=== PATIENT | female | born 1945 | race Caucasian/White ===

== ENCOUNTER 2018-11-10 19:31 | Observation (INO) | payer OTHER ==
--- NOTE | 2018-11-10 19:58 | EDPHY ---
H & P Time Seen by Provider: 11/10/18 19:47 HPI/ROS: CHIEF COMPLAINT: Low sodium HISTORY OF PRESENT ILLNESS: Patient is had dizzy feeling and a bad headache for the last 2 days. She has a history of chronic renal insufficiency and is followed by [facility]. She had labs drawn today which showed a sodium of 123 and was sent to the emergency department. She describes dizziness by feeling "not all there" and wobbly and weak. Little bit worse with standing. Denies vertigo or spinning. Denies ear dental throat or neck symptoms. No fever or chills. She says she has had normal oral intake. REVIEW OF SYSTEMS: Eye: no change in vision ENT: No ear symptoms. Cardiac: no chest pain or syncope Pulmonary: no cough or SOB Abdomen: no vomiting, diarrhea, abdominal pain Musculoskeletal: no back pain Skin: no rash Neuro: HPI no change in behavior or mental status Constitutional: no fever : no urinary symptoms A comprehensive 10 point review of systems is otherwise negative aside from elements mentioned in the history of present illness. PAST MEDICAL HISTORY: Renal insufficiency, appendectomy and tonsillectomy, right shoulder and knee replacement Social history: Smoker, [facility] patient General Appearance: Alert and conversant, cooperative. Eyes: No scleral icterus. ENT, Mouth: Normal mucous membranes. Does not have a dry mouth. Respiratory: Normal respiratory effort, breath sounds equal, lungs are clear to auscultation. Cardiovascular: Regular rate and rhythm. Gastrointestinal: Abdomen is soft and non tender. Neurological: Alert, face symmetric, normal motor and sensory in extremities. Skin: Warm and dry, no rashes. Musculoskeletal: No peripheral edema. Psychiatric: Not agitated. Emergency Department course/MDM: Plan for noncontrast head CT for headache with risk factor for bleeding, renal insufficiency with abnormal platelets, headache for 48 hr. Patient declined analgesics. Recheck sodium, admission for hyponatremia. She appears clinically euvolemic and says she has been drinking a lot of water along with her normal oral sodium bicarbonate. Suspect more likely hypervolemic. Her creatinine is 1.8 which is similar to previous, 1.7 in July of 2018. Discussed with Shelli Colin. 2031: Results discussed including CT findings and low potassium. Oral 40 mEq. Smoking Status: Light smoker Constitutional: Initial Vital Signs Temperature (C) 36.8 C 11/10/18 19:34 Heart Rate 82 03/12/19 19:34 Respiratory Rate 16 11/10/18 19:34 Blood Pressure 136/70 H 11/10/18 19:34 O2 Sat (%) 93 11/10/18 19:34 O2 Delivery Mode Room Air Allergies/Adverse Reactions: amoxicillin [Amoxicillin] Allergy (Unknown, Verified 11/10/18 19:37) Rash Sulfa (Sulfonamide Antibiotics) Allergy (Unknown, Verified 11/10/18 19:37) Rash tetracycline [Tetracycline] Allergy (Unknown, Verified 11/10/18 19:37) Rash erythromycin base [Erythromycin Base] Allergy (Verified 11/10/18 19:37) EMYCIN Allergy (Unknown, Uncoded 11/10/18 19:37) Rash Home Medications: Medication Instructions Recorded Sodium Bicarbonate [Na Bicarb] 2,600 mg PO BID 11/10/18 Medical Decision Making - Diagnostics EKG Interpretation: 12-lead EKG interpreted by me; official reading is in computer system. My interpretation is sinus rhythm, normal. Imaging Results: Imaging Impressions Head CT 11/10/18 19:54 Impression: 1. Subacute or old left occipital infarct, new since 2010. 2. Diffuse cerebral atrophy with periventricular and subcortical low attenuation consistent with chronic microvascular ischemic gliosis. Findings discussed with KURT CUETO 11/10/2018 at 20:23. Left occipital infarct since 2010 not acute, [facility] 2023. Imaging: I viewed and interpreted images myself - Data Points Medications Given: Discontinued Medications Potassium Chloride (Klor-Con) 40 meq PO EDNOW ONE Stop: 11/10/18 20:34 Last Admin: 11/10/18 20:41 Dose: 40 meq Departure - Departure Disposition: [facility] Clinical Impression: Hyponatremia, Hypokalemia Condition: Good
[2018-11-10 20:29] LABS: PLATELET COUNT 277 10^3/uL (150-400)
[2018-11-10] MEDS ORDERED: POTASSIUM CL 20 MEQ TAB PO ONE (20:33)
--- NOTE | 2018-11-10 20:34 | CPEKG ---
Test Reason : OPEN Blood Pressure : / mmHG Vent. Rate : 069 BPM Atrial Rate : 069 BPM P-R Int : 200 ms QRS Dur : 090 ms QT Int : 425 ms P-R-T Axes : 067 075 062 degrees QTc Int : 456 ms Sinus rhythm Confirmed by Carl Zhong ([id number]) on 11/10/2018 8:33:55 PM Referred By: Carl Zhong Confirmed By:Carl Zhong
[2018-11-10] MEDS ORDERED: ACETAMINOPHEN 325 MG TAB PO PRN (21:04)
[2018-11-10] MEDS ORDERED: ONDANSETRON 4 MG/2 ML VIAL IVP PRN (21:04)
[2018-11-10] MEDS ORDERED: ONDANSETRON DISINTEGRATING 4 MG TAB PO PRN (21:04)
[2018-11-10] MEDS ORDERED: POTASSIUM CL 20 MEQ PKT PO SCH (21:15)
--- NOTE | 2018-11-10 21:38 | GHP ---
[f rep st] HISTORY AND PHYSICAL DATE OF ADMISSION: 11/10/2018 The patient is a 73-year-old female with history of chronic kidney disease, had routine labs drawn by her mapping supervisor today. They were also drawn because she is a little bit dizzy. She is worried as she has had some potassium problems in the past. She was found to have a sodium of 123. She drinks an 80-90 ounces of water a day. She also takes sodium bicarb. She has not had diarrhea. She descri bed what she ate today which was a hamburger cecy, an apple, some yogurt. She states she does salt her food. She has not had diarrhea. She does not take diuretics. She has not had falls. She has n ot lost consciousness. REVIEW OF SYSTEMS: Complete 10-point review of systems conducted, negative except as noted in the HP I. PAST MEDICAL HISTORY: Chronic kidney disease, stroke, baseline creatinine about 1.5. SOCIAL HISTORY: No tobacco. Rare alcohol. FAMILY HISTORY: Parents . HOME MEDICATIONS: Sodium bicarb alone. ALLERGIES: Amoxicillin, sulfa, tetracycline, erythromycin. PHYSICAL EXAMINATION: VITAL SIGNS: Temp 36.8, blood pressure 136/70, pulse 82, breathing 16 times a minute, 93% on room air. GENERAL: No acute distress. HEENT: Sclerae anicteric. Oropharynx clear . Mucous membranes moist. NECK: Supple without lymphadenopathy or JVD. LUNGS: Clear to auscultat ion bilaterally. HEART: S1, S2. ABDOMEN: Soft, nontender, nondistended. LOWER EXTREMITIES: No e amber. Calves are nontender. SKIN: Without rash. NEUROLOGIC: Exam is nonfocal. LABORATORY DATA: Sodium 123, potassium 3.9, chloride 84, bicarb 26, BUN 35, creatinine 1.6. White c ount 6, hematocrit 36, platelets 277,000. Noncontrast head CT shows subacute or old left occipital infarct, new from 2010, diffuse cerebral atr ophy. EKG interpreted by me shows sinus at 69 with normal axis and intervals and no ST or T-wave changes. I have discussed the case with Dr. Carl Zhong. ASSESSMENT/PLAN: A 73-year-old female with chronic kidney disease and hyponatremia. 1. Hyponatremia. The patient is euvolemic. She does not take diuretics. I suspect this is poor so lute intake despite her sodium bicarbonate every day, as well as water intoxication. I fluid restric devin her to 1500 cc a day. Check urine osmolality, serum osmolality, will follow q.6. 2. Stroke. This is an old stroke. It is not an acute event. I have sent a lipid panel in the [facility]. I recommended an aspirin. She cited numerous drug intolerances and I will allow her to follow up with her primary care physician. 3. Hyperkalemia. I will give her a little bit of potassium daily. 4. Hypertension. This is mild. Will follow. DISPOSITION: Observation status. /[id number]/MODL
[2018-11-10] MEDS ORDERED: NS 500 ML IV ONE (23:00)
[2018-11-10] MEDS ORDERED: NS 1,000 ML IV SCH (23:00)
[2018-11-11] MEDS: POTASSIUM CL 20 MEQ PKT PO SCH ×2 (01:03→08:30)
--- NOTE | 2018-11-11 08:49 | GCON ---
[f rep st] CONSULTATION RENAL CONSULTATION REFERRING PHYSICIAN: Eliseo Evans MD REASON FOR CONSULT: Hyponatremia. HPI: Patient is a 73-year-old female with medullary sponge kidney, nephrocalcinosis, CKD stage 3, follows with Dr. Nehemiah Ortiz of [facility], who called into clinic today complaining of 2 days of dizziness and a headache, found to be hyponatremic. Renal has been asked to assist in the evaluation and management of the hyponatremia. Patient called in with the above complaints and was sent in for labs, which showed a serum sodium of 123, and she was sent to the ER, where these labs were confirmed. She was also found to be hypokalemic with a potassium of 3.0. She was given potassium oral replacement. The patient reports that she has had episodes of similar symptoms in the past which she associated with hypernatremia and hyponatremia, 1 time each. With this episode, she denies any obvious inciting event. She reports normal intake of food and liquid. She drinks a lot due to her CKD, taking in about 80-90 oz per day, but there has been no recent change from her usual intake and she denies any recent change in her urine output. She denies any nausea, vomiting, or diarrhea. She does have some heartburn symptoms, although this is also chronic for her. She denies any recent change in medications. Does not take any meds other than sodium bicarbonate and some herbal supplements. She denies any NSAID use. She was on potassium supplementation in the past, and her recent nephrology note shows that she should have been started on it, but she denies taking this for several years. She has had some recent cramps in her lower legs and feet, which is typical of symptoms that she has had in the past with hypokalemia. She reports her headache was a 9/10 yesterday and is in addition 6/10 or 7/10 today. She reports it is somewhat of a pounding headache. She denies any associated visual, hearing, or other neurological deficit. No other associated symptoms. She denies any other complaints at this time. PAST MEDICAL HISTORY: 1. Medullary sponge kidney. 2. Nephrocalcinosis. 3. CKD. 4. Hypokalemia. 5. GERD/peptic ulcer disease. 6. DJD. 7. Possible COPD. PAST SURGICAL HISTORY: Rotator cuff surgery, bilateral knee replacement secondary to trauma. FAMILY HISTORY: No known renal disease. SOCIAL HISTORY: Smokes a few cigarettes daily. Denies alcohol or drugs. HOME MEDICATIONS: Sodium bicarbonate 325 mg tablets 8 tablets by mouth once daily, ramesh mai. ALLERGIES: Sulfa, erythromycin, tetracycline, amoxicillin. REVIEW OF SYSTEMS: GENERAL: No recent weight change. Denies fevers, chills. HEENT: Headache as above. Mild sore throat. PULMONARY: Denies any cough. Denies shortness of breath. CV: Denies chest pain, palpitations. GI: Has heartburn, as above. Denies any bloody or black stool. : No dysuria, hematuria. No change in her usual quality or quantity of urine output. MUSCULOSKELETAL: Denies any pain or limited range of motion. Denies any swelling. HEME: Denies any bleeding or bruising, and does deny heat or cold intolerance. PSYCH: Denies anxiety. PHYSICAL EXAMINATION: VITAL SIGNS: Temperature is 37, heart rate 75, respirations 16, blood pressure 158/93, oxygenation 95% on room air. Orthostatic blood pressure showed blood pressure 150/93 with a heart rate of 88 lying down and 147/79 with a heart rate of 88 on standing. GENERAL: No acute distress, alert and oriented times three HEENT: Moist mucosal membranes NECK: Supple, no JVD PULMONARY: Clear to auscultation bilaterally HEART: Regular rate and rhythm, no murmurs, rubs, gallops GI: Soft, non-tender, positive bowel sounds EXTREMITIES: No clubbing, cyanosis, or edema SKIN: Normal turgor NEURO: Cranial nerves II-XII grossly intact, sensation intact and equal bilaterally, strength 5/5 and equal bilaterally PSYCH: Appears mildly anxious LABS: Sodium 123, potassium 3.0, chloride 84, bicarb 26, BUN 35, creatinine 1.6 , calcium 9.3. White count 5.56, hemoglobin 13.1, platelets 277. Urine osmolality 122, urine sodium 11, urine creatinine 24.3, urine potassium 3.3. IMAGING: Head CT: Subacute or old left occipital infarct, diffuse cerebral atrophy with periventricular and subcortical low attenuation consistent with chronic microvascular ischemic gliosos. ASSESSMENT AND PLAN: 1. Hyponatremia. The patient has acute hypotonic hyponatremia with probable symptoms including the headache and dizziness that she has experienced over the last 2 days. The etiology is not entirely clear from her history as she reports normal intake, although the urine studies are strongly suggestive of a hypovolemic hyponatremia with low urine sodium and low urine osmolality. She also has a somewhat high BUN to creatinine ratio, again suggestive of hypovolemia. Her orthostatic vital signs were not overtly positive, but the blood pressure did drop somewhat. I recommend giving her 1/2 L of normal saline , to try to ameliorate some of her presenting symptoms, over the next hour. This will be followed by a low rate of normal saline at 50 cc/h in order to monitor her response while carefully avoiding any overcorrection. Given the low urine osmolality, this is likely to improve fairly easily and potentially very quickly. She will have q.6 h BMP checks. Despite the presenting symmetrical, on exam she is calm, nontoxic, and does not appear in any distress. Therefore, I will hold off on any hypertonic saline. It will be helpful to maintain a water restriction while giving her normal saline IV fluids , and this had already been added. She also has a serum uric acid of 9.5, which is consistent with a hypovolemic state. Will recheck her urine studies in the morning to see how she responds to the current therapy. 2. Hypokalemia. This appears to be a chronic condition for the patient, and she does have a history of a distal renal tubular acidosis, for which she is on bicarbonate therapy. This can also complicate the likelihood for hypokalemia. She was started on supplementation at her last nephrology visit but reports she has not been taking it. She was given 40 mEq in the ER today. This will be followed and replaced p.r.n. This is likely the cause for her muscle cramps, which should alleviate with supplementation. She likely will need to be given maintenance therapy upon hospital discharge. 3. Chronic kidney disease. Patient follows with Dr. Nehemiah Ortiz for a history of chronic kidney disease 3 with a history of medullary sponge kidney, nephrocalcinosis, and distal renal tubular acidosis. Her baseline creatinine appears to be in the range of 1.6 to 1.7. She is currently around this level. There may be some further improvement with the fluid as above. This will be followed. 4. Acidosis secondary to the distal renal tubular acidosis. She is on bicarbonate therapy. This will be continued, and her levels will be followed. Thank you very much for the consult. We will follow with you. /[id number]/MODL MTDD
[2018-11-11] MEDS ORDERED: SODIUM BICARBONATE 650 MG TAB PO SCH ×2 (09:00)
--- NOTE | 2018-11-11 10:41 | ASMTCMCOM ---
CM Note CM Note Notes: Pt is a 73 y/o female admitted for chronic kidney disease. Pt is being followed by a bench mechanic. Pt will most likely d/c without any needs. No therapies ordered at this time. Pts case discussed w/ Becky Ventura NP. CM available for changes. Plan: Independent Date Signed: 11/11/2018 10:41 AM Electronically Signed By:CHRIS Matt
[2018-11-11] MEDS ORDERED: D5W 1,000 ML IV SCH (18:30)
[2018-11-12 07:31] VITALS: BP 126/58
[2018-11-12] MEDS: POTASSIUM CL 20 MEQ PKT PO SCH (07:49)
--- NOTE | 2018-11-12 10:34 | SOAPPROG ---
SOAP Progress Note Assessment/Plan: Assessment: Naty presented with hyponatremia and hypokalemia. She had a very dilute urine on presentation. I spoke with her primary hardboard coating machine operator, Dr. Ortiz. He states she has had similar presentations in the past. He attributes her recurrent presentations with an imbalance of water and solute intake. Naty states she has been drinking 80-100oz/water per day. It could be more. Plan -ok for DC -Water intake decreased to 60 oz/day -Increased protein intake -ok to go home on her admission meds. -RFP, Urine osm, Na, Cr on Friday, results sent to Dr. Ortiz -She is to call [phone] for follow up instructions by Dr. Ortiz Thanks Plan: 11/12/18 10:31 Subjective: Doing fine Objective: Vital Signs Temp Pulse Resp BP Pulse Ox 36.5 C 70 14 126/58 H 97 11/12/18 07:30 11/12/18 07:30 11/12/18 07:30 11/12/18 07:30 11/12/18 07:30 Laboratory Results 11/10/18 20:15 11/12/18 04:25 11/11/18 11/12/18 11/13/18 05:59 05:59 05:59 Intake Total 300 100 Balance 300 100 Physical Exam - Physical Exam General Appearance: no apparent distress Respiratory: normal breath sounds Cardiac/Chest: regular rate, rhythm Extremities: normal inspection Neuro/Psych: normal mood/affect, oriented x 3 ICD10 Worksheet Patient Problems: Problems Problem Status Onset Hypokalemia Acute Hyponatremia Acute Arthritis Acute
--- NOTE | 2018-11-12 11:51 | HOSPPROG ---
Hospitalist Progress Note Assessment/Plan: Naty is a 73 y/o female who presented to the ER w c/o dizziness. *hyponatremia -decrease water intake to 60 ounces a day -to get RFT, urine osm, Na, cr on Friday w results sent to Dr Ortiz, f/u with him and call [phone] *hx of stroke *nicotine dependence *dizziness -resolved *hypokalemia *renal insufficiency *plan: dc home w close f/u Subjective: Naty is anxious for dc Objective: Vital Signs Temp Pulse Resp BP Pulse Ox 36.5 C 70 14 126/58 H 97 11/12/18 07:30 11/12/18 07:30 11/12/18 07:30 11/12/18 07:30 11/12/18 07:30 Laboratory Results 11/10/18 20:15 11/12/18 04:25 11/11/18 11/12/18 11/13/18 05:59 05:59 05:59 Intake Total 300 100 Balance 300 100 - Physical Exam Constitutional: no apparent distress, appears nourished, not in pain Eyes: PERRL Ears, Nose, Mouth, Throat: hearing normal Respiratory: no respiratory distress Gastrointestinal: normoactive bowel sounds Skin: warm Musculoskeletal: full muscle strength Neurologic: AAOx3 Psychiatric: interacting appropriately ICD10 Worksheet Patient Problems: Problems Problem Status Onset Hypokalemia Acute Hyponatremia Acute Arthritis Acute
--- NOTE | 2018-11-12 12:40 | GDS ---
[f rep st] DISCHARGE SUMMARY DISCHARGE DIAGNOSES: 1. Acute dizziness. 2. Hyponatremia. 3. History of stroke. 4. Nicotine dependence. 5. Hypokalemia. 6. Renal insufficiency. CONSULTATION: Dr. Marcle Cha HISTORY OF PRESENT ILLNESS: Briefly, the patient is a 73-year-old female with a history of chronic k idney disease and was admitted because she was having some dizziness. She has also had some potassiu m problems in the past and is on sodium bicarb. She was found to have a sodium of 123. She drinks 8 0 to 90 ounces of water. She was admitted and evaluated by Nephrology. She was fluid restricted. S he is much improved. She will be discharged home with close followup with Dr. Ortiz. HOSPITAL COURSE PER PROBLEM: 1. Dizziness, resolved. This was secondary to low sodium levels. 2. Hyponatremia. Sodium level today is 133. 3. History of stroke, stable without any residual effects. 4. Nicotine dependence. Recommended cessation. She is anxious to be discharged and smoke. 5. Hypokalemia, stable. 6. Renal insufficiency. Creatinine is a bit above her baseline at 1.8. She will get labs rechecked on Friday. DISCHARGE CONDITION: Stable. Blood pressure is 125/58, heart rate is 70, respiratory rate 14, O2 sa ts on room air 97%, temperature 36.5 Celsius. MEDICATIONS AT DISCHARGE: Please see the EMR. DISCHARGE INSTRUCTIONS: 1. Come back Friday and get labs checked. 2. Water intake decreased to 60 ounces a day. 3. Increase her protein intake. /[id number]/MODL
== END 2018-11-12 12:21 | disposition home or self-care (01) ==
LOC: F3E 23:42
PROVIDERS: ADMIT Internal Medicine; ATTEND Family Medicine
DX: R42 Dizziness and giddiness (principal); E87.1 Hypo-osmolality and hyponatremia; E87.6 Hypokalemia; N18.9 Chronic kidney disease, unspecified; F17.210 Nicotine dependence, cigarettes, uncomplicated; Z86.73 Personal history of transient ischemic attack (TIA), and cerebral infarction without residual deficits; Z96.653 Presence of artificial knee joint, bilateral
CPT/HCPCS: 70450; 93005; 96360; 99285; G0378; 82435-PO; 82565-PO; 82947-PO; 84132-PO; 84295-PO; 84520-PO; 85014-ER